=== PATIENT | female | born 1975 | race American Indian/Alaskan Native ===

== ENCOUNTER 2021-09-13 06:11 | Observation (INO) | payer BC ==
[2021-09-09 10:56] LABS: Hematocrit 35.6 % (30.3-42.9); Hemoglobin 11.4 gm/dl (10.1-14.3); Mean Corpuscular HGB Conc 32 % (30-34); Mean Corpuscular Volume 82 fl (79-97); Platelet Count 396 K/mm3 (140-440); Red Blood Count 4.33 M/mm3 (3.65-5.03)
--- NOTE | 2021-09-09 11:06 | Anesthesia Consultation ---
Anesthesia Consult and Med Hx Date of service: 09/13/21 - Airway Anesthetic Teeth Evaluation: Good, Caps ROM Head & Neck: Adequate Mental/Hyoid Distance: Adequate Mallampati Class: Class II Intubation Access Assessment: Probably Good - Pulmonary Exam CTA: Yes - Cardiac Exam Cardiac Exam: RRR - Pre-Operative Health Status ASA Pre-Surgery Classification: ASA2 Proposed Anesthetic Plan: General Nerve Block: prn post-op TAP - Pulmonary Hx Smoking: No Hx Respiratory Symptoms: Yes (occasional cough + congestion; COVID neg 09/06/21) SOB: No - Cardiovascular System Hx Hypertension: No Hx Heart Attack/AMI: No - Central Nervous System CVA: No - Endocrine Hx Renal Disease: No Hx Liver Disease: No Hx Insulin Dependent Diabetes: No Hx Non-Insulin Dependent Diabetes: No Hx Thyroid Disease: Yes (?nodules; thyroid hormone levels OK per patient) - Additional Comments Anesthesia Medical History Comments: No hx anesthetic complications.
[2021-09-09 11:20] LABS: BUN/Creatinine Ratio 11; Blood Urea Nitrogen 9 mg/dL (7-17); Calcium 9.2 mg/dL (8.4-10.2); Hemolysis Index 5
[2021-09-09 12:46] LABS: Platelet Estimate Consistent w Auto; Total Cells Counted 100
--- NOTE | 2021-09-12 09:34 | History and Physical Report ---
History of Present Illness Date of examination: 09/13/21 Date of admission: 09/12/21 Chief complaint: heavy painful bleeding with periods History of present illness: Pt does c/o having increase in menstrual flow as well as increased pain despite having the mirena. Device has been present for the last 4 years. Reports having heavy bleeding prior to placement but states the device has made the bleeding worse because she will have two months of no bleeding followed by heavy bleeding. Sonogram revealed device to be in place and multiple fibroids the largest being 9cm. I d/w LAVH vs ELMER. Pt understands that the size of the fibroids and her previous c/s x2 may prevent the procedure from being done vaginally and she will need the open procedure. All risk, benefits and alternatives were d/w pt and questions were addressed and answered. Consents signed and placed on the chart. Past History : 5 Term Births: 4 Living Children: 3 Para: 3 Prev : 2 Elect. Ab: 1 MANAGER LANGUAGE History Uterine Surgery (not C/S): negative Operations: positive Hospitalizations: negative Anesthesia Complications: negative Abnormal PAP: positive; s/p LEEEP at 20 yo Uterine Anomaly: negative JW Exposure: negative Infertility: negative Relevant Family Hx: HTN Medical Hx Comments: FIBROIDS Infection History HIV Risk Eval: no Personal hx. of genital herpes: no Hx of STD: None Current Allergies (reviewed today): No known allergies Past Medical History: Reviewed and updated today: Fibroids Past Surgical History: Reviewed and updated today: positive General Comments - FH: HTN Risk Factors: Smoked Tobacco Use: Former smoker Cigarettes: Yes Year Quit: 2018 Years Since Last Quit: 3 Smokeless Tobacco Use: Never Passive Smoke Exposure: no HIV High Risk Behavior: no Exercise: yes Times/wk: 0 Seatbelt Use: 100 % Alcohol Use: yes Type: occ Drug Use: no Review of Systems See HPI Past History Past Medical History: other (see hpi) Past Surgical History: other (see hpi) MANAGER LANGUAGE History: other (see hpi) Family/Genetic History: other (see hpi) Social history: other (see hpi) Medications and Allergies Allergies Allergy/AdvReac Type Severity Reaction Status Date / Time No Known Allergies Allergy Verified 09/09/21 11:12 Home Medications Medication Instructions Recorded Confirmed Last Taken Type No Known Home Medications [No 09/09/21 09/09/21 Unknown History Reported Home Medications] Active Meds: Active Medications Acetaminophen (Acetaminophen 500 Mg Tab) 1,000 mg PO PREOP PATRICIA Albuterol (Albuterol 2.5 Mg/3 Ml Nebu) 2.5 mg IH PREOP PATRICIA Celecoxib (Celecoxib 200 Mg Cap) 200 mg PO PREOP NR Stop: 09/13/21 23:00 Gabapentin (Gabapentin 300 Mg Cap) 300 mg PO PREOP NR Stop: 09/13/21 23:00 Lactated Ringer's (Lactated Ringers) 1,000 mls @ 100 mls/hr IV DIRECT PATRICIA Stop: 09/13/21 23:59 Methocarbamol 1,000 mg/ Sodium (Chloride) 260 mls @ 250 mls/hr IV PREOP PATRICIA Midazolam HCl (Midazolam 2 Mg/2 Ml Inj) 2 mg IV PREOP NR Stop: 09/13/21 23:00 Scopolamine (Scopolamine Transdermal Patch 72 Hr) 1 each TD PREOP NR Stop: 09/13/21 23:00 - Vital Signs Vital signs: Vital Signs Temp Pulse Resp BP Pulse Ox 98.2 F 72 20 125/72 97 09/09/21 10:20 09/09/21 10:20 09/09/21 10:20 09/09/21 10:20 09/09/21 10:20 Temp Pulse Resp BP Pulse Ox 98.2 F 72 20 125/72 97 09/09/21 10:20 09/09/21 10:20 09/09/21 10:20 09/09/21 10:20 09/09/21 10:20 - Physical Exam Cardiovascular: Normal S1, Normal S2 Lungs: Positive: Clear to auscultation, Normal air movement Abdomen: Positive: normal appearance, soft. Negative: distention, tenderness Genitourinary (Female): Positive: other (deferred until EUA) Results Result Diagrams: 09/09/21 10:30 09/09/21 10:30 All other labs normal. Assessment and Plan - Patient Problems (1) Menorrhagia with irregular cycle Current Visit: No Status: Acute Plan to address problem: to OR for above stated procedure. consents signed and placed on the chart (2) Dysmenorrhea Current Visit: No Status: Acute Plan to address problem: to OR for above stated procedure. consents signed and placed on the chart (3) Fibroid Current Visit: No Status: Acute Plan to address problem: to OR for above stated procedure. consents signed and placed on the chart
[~2021-09-13 06:11] MED LIST: ACETAMINOPHEN 500 MG TAB PO SCH; ALBUTEROL 2.5 MG/3 ML NEBU IH SCH; CELECOXIB 200 MG CAP PO NR; GABAPENTIN 300 MG CAP PO NR; MIDAZOLAM 2 MG/2 ML INJ IV NR; SCOPOLAMINE TRANSDERMAL PATCH 72 HR TD NR; methOCARBAMOL 1,000 MG in SODIUM CHLORIDE 0.9% 250ML 250 ML IV SCH
[2021-09-13] MEDS: LACTATED RINGERS 1,000 ML IV SCH ×2 (07:00→15:59)
[2021-09-13] MEDS ORDERED: fentaNYL 100 MCG/2 ML INJ ONE (07:17)
[2021-09-13] MEDS ORDERED: propofoL 200 MG/20 ML VIAL IV ONE (07:18)
[2021-09-13] MEDS ORDERED: ONDANSETRON 4 MG/2 ML INJ ONE (07:32)
[2021-09-13] MEDS ORDERED: LIDOCAINE PF 100 MG/5 ML (CARDIAC SYRINGE) IV ONE (07:32)
[2021-09-13] MEDS ORDERED: dexAMETHasone 20 MG/5 ML VIAL ONE (07:37)
--- NOTE | 2021-09-13 07:45 | Anesthesia Day of Surgery ---
Anesthesia Day of Surgery - Day of Surgery Patient Examined: Yes Patient H&P Reviewed: Yes Patient is NPO: Yes
[2021-09-13] MEDS ORDERED: BUPIVACAINE/PF (0.5%) 5 MG/1 ML 30 ML VIAL INFILTRATI ONE ×2 (07:53→10:13)
[2021-09-13] MEDS ORDERED: METHYLENE BLUE 50 MG/10 ML AMP ONE (07:54)
[2021-09-13] MEDS ORDERED: VASOPRESSIN 20 UNIT/1 ML INJ ONE (07:54)
[2021-09-13] MEDS ORDERED: ceFAZolin/STERILE WATER 2 GM/20 ML SYRINGE IV NR (08:00)
[2021-09-13] MEDS ORDERED: SODIUM CHLORIDE 0.9% 250ML 250 ML ONE (08:06)
[2021-09-13] MEDS ORDERED: CITRIC ACID-SOD CITRATE 500 ML IV ONE (08:06)
[2021-09-13] MEDS ORDERED: ONDANSETRON 4 MG/2 ML INJ IV PRN ×2 (08:30→15:00)
[2021-09-13] MEDS ORDERED: HYDROmorphone 1 MG/1 ML INJ IV PRN (09:00)
[2021-09-13] MEDS ORDERED: SODIUM CHLORIDE 0.9% IRRIG SOLN 2000 ML IR ONE (10:13)
[2021-09-13] MEDS ORDERED: SODIUM CHLORIDE 0.9% IRR 1,500 ML BOTTLE IR ONE (10:13)
[2021-09-13] MEDS ORDERED: VASOPRESSIN 20 UNIT/1 ML INJ IV ONE (10:14)
[2021-09-13] MEDS ORDERED: SODIUM CHLORIDE 0.9% 100 ML IVPB IV ONE (10:19)
[2021-09-13] MEDS ORDERED: dexAMETHasone 4 MG/ML VIAL ONE (11:10)
[2021-09-13] MEDS ORDERED: BUPIVACAINE/PF (0.25%) 2.5 MG/ML 30 ML VIAL INFILTRATI ONE (11:10)
--- NOTE | 2021-09-13 11:29 | Operative Report ---
Operative Report Operative Report: Date of procedure: 09/13/2021 Pre-operative diagnosis: Menorrhagia Dysmenorrhea Uterine fibroids Post-operative diagnosis: Same plus evidence of adenomyosis Procedure name(s): Laparoscopic assisted vaginal hysterectomy Bilateral salpingectomy Removal of intrauterine device Surgeon: Valeria Iglesias MD Back Hoe Machine Operator: Dr. Apoorva Marcelino Anesthesia: General endotracheal anesthesia EBL: 100 mL Urine output: 700 mL Fluids: 1100 mL Findings: Enlarged globular uterus with approximately 10 cm fibroid noted Grossly normal fallopian tubes and ovaries bilaterally Evidence of adenomyosis Indications: Patient with uterine fibroids treated with Mirena IUD. Patient noted to have no relief of symptoms with placement of device. Patient noted to have large fibroids and desired to have definitive therapy. Decision was made to proceed with above-stated procedure. All risk benefits and alternatives were discussed with the patient. Procedure: Patient was taken to the operating room where she was placed under general endotracheal anesthesia. She was then prepped and draped in sterile fashion. It was at this point that the medium V care uterine manipulator was placed inside of the uterus after the uterus was sounded to approximately 12 cm. Sullivan catheter was also placed at this time. Attention was then turned to the umbilicus in which a supraumbilical incision was made. Under direct visualization the 5 mm trocar was placed inside the peritoneum the peritoneum was then insufflated. As at this point that the laparoscopic portion of the procedure was performed. 2 lateral 5 mm ports were also placed under direct visualization. Using the tripolar instrument the upper pedicles were cauterized and transected to the including round ligament with excellent hemostasis noted bilaterally. Attention was turned to the fallopian tubes bilaterally which were cauterized and transected and removed. They were handed off to the field for pathology. Attention was then turned vaginally. A weighted speculum was placed into the vagina and the cervix was grasped with a single-tooth tenaculum 2. The cervix was then injected circumferentially with Pitressin. The cervix was then circumferentially incised with the scalpel and the bladder dissected off of the pubovesical cervical fascia anteriorly with a sponge stick and Metzenbaum scissors. The same procedure was performed posteriorly and the posterior cul-de-sac was entered into sharply without difficulty. At this point a Kwesi Clamp was placed over the uterosacral ligaments on either side. These were then transected and suture ligated with 0 Vicryl. Hemostasis was assured. The cardinal ligaments were then clamped on both sides transected and suture ligated in similar fashion. The uterine arteries were then serially clamped with Kwesi clamps transected and suture ligated on both sides. Excellent hemostasis was visualized. After it was clear that the uterus had been completely from all pedicles the uterus was removed vaginally intact with cervix intact. The vaginal cuff angles were closed with figure of 8 stitches of 0 Vicryl on both sides. The peritoneum was incorporated in the stitching of the vaginal cuff. A series of interrupted figure of 8 sutures using 0 Vicryl were used to close the entire vaginal cuff. Excellent hemostasis was noted. The vagina was then irrigated copiously. Attention was then turned laparoscopically at which time. Again all pedicles were noted to be hemostatic. All instruments were then removed from the abdomen and the vagina. All gas was released from the abdomen. The abdominal incisions were closed using 4-0 Monocryl. Patient tolerated the procedure well sponge lap and needle counts were all correct 3 the patient was taken to the recovery room awake and in stable condition.
[2021-09-13] MEDS: HYDROmorphone 1 MG/1 ML INJ IV PRN ×2 (11:55→12:05)
[2021-09-13] MEDS ORDERED: IBUPROFEN 800 MG TAB PO PRN (12:00)
[2021-09-13] MEDS ORDERED: KETOROLAC 30 MG/1 ML INJ IV PRN (12:00)
[2021-09-13] MEDS ORDERED: ACETAMINOPHEN 325 MG TAB PO PRN (12:00)
--- NOTE | 2021-09-13 14:52 | Post Anesthesia Evaluation ---
- Post Anesthesia Evaluation Patient Participated: Yes Airway Patent: Yes Stable Respiratory Function: Yes Nausea/Vomiting: No Temp > 96.8F: Yes Pain Manageable: Yes Adequeate Hydration: Yes Anesthesia Complications: No Block Receding Appropriately: Yes Patient on Ventilator: No
[2021-09-13] MEDS: MORPHINE 4 MG/1 ML INJ IV PRN ×2 (15:59→20:00)
[2021-09-13] MEDS: ceFAZolin/NS 1 GM/50 ML 1 GM/50 ML BAG IV SCH ×2 (16:00→23:47)
[2021-09-14] MEDS: HYDROcodone/ACETAMINOPHEN 5-325 MG TAB PO PRN ×3 (04:00→11:11)
[2021-09-14] MEDS ORDERED: PHENOL 1.4% 177 ML BOTTLE MM PRN (05:37)
[2021-09-14 06:29] LABS: Hematocrit 34.7 % (30.3-42.9); Hemoglobin 10.5 gm/dl (10.1-14.3)
--- NOTE | 2021-09-14 10:30 | Progress Note ---
Assessment and Plan - Patient Problems (1) Menorrhagia with irregular cycle Current Visit: No Status: Acute (2) Dysmenorrhea Current Visit: No Status: Acute (3) Fibroid Current Visit: No Status: Acute (4) S/P laparoscopic assisted vaginal hysterectomy (LAVH) Current Visit: Yes Status: Acute Plan to address problem: routine post op care d/c home this pm if AFVSS Subjective - Subjective Date of service: 09/14/21 Principal diagnosis: POD #! s/p LAVH with BS Interval history: Pt c/o having diaphragm pain that radiates to her right shoulder. I d/w pt that due to the LAVH and the air that is placed in abdomen, this is common and will get better. No fevers, chills, nausea of vomiting. Pt tolerated her regular diet breakfast this am. Post op goals were d/w pt and questions were addressed and answered. Patient reports: appetite normal, voiding normally, pain well controlled, flatus Objective - Vital Signs Latest vital signs: Vital Signs Temp Pulse Resp Resp BP BP Pulse Ox 09/14/21 07:22 98.3 F 52 L 18 118/64 99 09/14/21 05:28 98.2 F 56 L 20 133/71 99 09/14/21 05:00 18 09/14/21 04:00 18 09/14/21 01:00 18 09/14/21 00:26 98.3 F 58 L 20 132/70 99 09/14/21 00:00 18 09/13/21 20:30 18 09/13/21 20:00 18 18 98 09/13/21 19:35 98.2 F 77 20 143/69 100 09/13/21 16:05 98.4 F 78 20 133/85 100 09/13/21 12:15 98.1 F 62 16 124/66 100 09/13/21 12:06 97.8 F 65 18 147/75 97 09/13/21 12:05 16 09/13/21 12:00 65 16 141/75 100 09/13/21 11:55 74 16 137/75 100 09/13/21 11:50 71 16 135/75 100 09/13/21 11:45 97.2 F L 70 13 129/71 100 Intake and Output 09/13/21 09/14/21 09/14/21 22:59 06:59 14:59 Intake Total 1788.333 480 120 Output Total 2600 2800 Balance -811.667 -2320 120 Intake: IV 948.333 ANCEF/NS 1 GM/50 ML 1 gm 50 In 50 ml @ 100 mls/hr IV Q8H PATRICIA Rx#:[id number] Lactated Ringers 1,000 ml 898.333 @ 100 mls/hr IV DIRECT PATRICIA Rx#:[id number] Oral 480 480 120 Intake, Free Water 360 Output: Urine 2600 2800 Indwelling Catheter 2600 2800 Other: Total, Intake Amount 480 240 120 Total, Output Amount 1300 1300 Voiding Method Indwelling Catheter - Exam Cardiovascular: Present: Regular rate, Normal S1, Normal S2 Lungs: Present: Clear to auscultation, Normal air movement Abdomen: Present: normal appearance, soft, normal bowel sounds. Absent: distention, tenderness, guarding Incision: Present: normal, dry, intact
--- NOTE | 2021-09-14 10:32 | Discharge Summary ---
Providers - Providers Date of Admission: 09/13/21 11:30 Date of discharge: 09/14/21 Attending physician: LISA IGLESIAS Primary care physician: RN BSN Hospitalization Reason for admission: other (fibroid uterus, menorrhagia, dysmenorrhea) Procedure: other (LAVH WITH BS) Procedure details: SEE OP NOTE Incision: normal, dry, intact Hospital course: Pt admitted and had above stated procedure that was not complicated. She had routine post op care and was d/c home on POD #1. Pt to f/u in office in one week. Condition at discharge: Good Disposition: HOME / SELF CARE / HOMELESS - Discharge Diagnoses (1) Menorrhagia with irregular cycle Status: Acute (2) Dysmenorrhea Status: Acute (3) Fibroid Status: Acute (4) S/P laparoscopic assisted vaginal hysterectomy (LAVH) Status: Acute Plan - Discharge Medications Prescriptions: Docusate Sodium [Colace] 100 mg PO BID PRN #60 capsule PRN Reason: Constipation Ferrous Sulfate [Feosol 325 MG tab] 325 mg PO QDAY #60 tablet Ibuprofen [Motrin 800 MG tab] 800 mg PO Q8HR PRN #30 tablet PRN Reason: Pain, Moderate (4-6) oxyCODONE /ACETAMINOPHEN [Percocet 5/325] 1 tab PO Q4HR #30 tab - Provider Discharge Summary Activity: routine, no sex for 6 weeks, no heavy lifting 4 weeks Diet: routine Instructions: routine Additional instructions: [] Smoking cessation referral if applicable(refer to patient education folder for contact #) [] Refer to [facility] Booklet Call your doctor immediately for: * Fever > 100.5 * Heavy vaginal bleeding ( >1 pad per hour) * Severe persistent headache * Shortness of breath * Reddened, hot, painful area to leg or breast * Drainage or odor from incision. * Keep incision clean and dry at all times and follow doctor's instructions regarding bathing/showering keep scheduled apt with Dr. Iglesias in one week - Follow up plan Follow up: PRIMARY CARE, [Primary Care Provider] - 7 Days Forms: [facility] Discharge Summary
[2021-09-14 12:07] VITALS: BP 133/71
== END 2021-09-14 12:20 | disposition home or self-care (01) ==
LOC: OR 06:11 → OB 11:30
PROVIDERS: ADMIT Obstetrics & Gynecology; ATTEND Obstetrics & Gynecology
DX: N92.1 Excessive and frequent menstruation with irregular cycle (principal); D21.9 Benign neoplasm of connective and other soft tissue, unspecified; N94.6 Dysmenorrhea, unspecified; Z98.891 History of uterine scar from previous surgery; Z87.891 Personal history of nicotine dependence; Z79.899 Other long term (current) drug therapy; Z98.890 Other specified postprocedural states
CPT/HCPCS: 36415; 58554; 80048; 84703; 85014; 85018; 85025; 86850; 86900; 86901; 88300; 88302; 88307; 96365; 96366; 96375; 96376; G0378; J0690; J1100; J1170; J2001; J2250; J2270; J2405; J2704; J2800; J3010; J3490; J7050; J7120; 85007; Q9968

== ENCOUNTER 2021-09-20 16:15 | Emergency (ER) | payer BC ==
[2021-09-20] MEDS ORDERED: methylPREDNISolone Sod Succinate 125 MG/2 ML INJ IM ONE (21:24)
[2021-09-20] MEDS ORDERED: diphenhydrAMINE 25 MG CAP PO ONE (21:24)
[2021-09-20] MEDS ORDERED: FAMOTIDINE 20 MG TAB PO ONE (21:24)
--- NOTE | 2021-09-20 21:53 | Emergency Department Report ---
ED Allergic Reaction HPI - General Chief complaint: Skin Rash Stated complaint: RASH/ITCHING Source: patient Mode of arrival: Ambulatory Limitations: No Limitations - History of Present Illness Initial Comments: Patient is a 45-year-old -French female with a history of GERD and migraine headaches who presents to the ED with complaint of acute onset persistent diffuse itchy erythematous maculopapular urticarial rashes for over 20 hours. Patient states that she is unsure as to the etiology of the rash is but adds that the only thing new in the last few days was a new juice that she tried on about 24 hours ago. Patient however stated that she is also s/p laparoscopic hysterectomy about a week ago and felt that this may have had something to do with the acute onset itchy rashes. Patient stated that she did not take any medications prior to arrival in the ED except ibuprofen for pain and stool softener. Patient denies dizziness, syncope, chest pain or shortness of breath, wheezing, cough, nausea and vomiting, chest tightness, palpitations, diarrhea, abdominal pain, swollen lips or swollen tongue, dysphagia or dysphonia and hoarseness. MD Complaint: allergic reaction, hives, other (diffuse itchy erythematous macular rashes) -: Sudden, hour(s) (20) Exposure: unknown Symptoms: rash, itching. denies: facial swelling, lip swelling, difficulty swallowing, difficulty breathing, orolingual swelling, hoarseness, syncopy, dizziness, nausea, other, abdominal pain Severity: severe Treatment Prior to Arrival: none Previous Allergy History: none - Related Data Previous Rx's Medication Instructions Recorded Last Taken Type Docusate Sodium [Colace] 100 mg PO BID PRN #60 capsule 09/13/21 Unknown Rx Ferrous Sulfate [Feosol 325 MG tab] 325 mg PO QDAY #60 tablet 09/13/21 Unknown Rx Ibuprofen [Motrin 800 MG tab] 800 mg PO Q8HR PRN #30 tablet 09/13/21 Unknown Rx oxyCODONE /ACETAMINOPHEN [Percocet 1 tab PO Q4HR #30 tab 09/13/21 Unknown Rx 5/325] Famotidine [Pepcid] 20 mg PO Q12H #60 tablet 09/20/21 Unknown Rx Prednisone [predniSONE 10 mg 10 mg PO .TAPER #1 09/20/21 Unknown Rx (6-Day Pack, 21 Tabs)] diphenhydrAMINE [Benadryl CAP] 50 mg PO Q8HR PRN #30 capsule 09/20/21 Unknown Rx Allergies Allergy/AdvReac Type Severity Reaction Status Date / Time No Known Allergies Allergy Verified 09/20/21 19:37 ED Review of Systems ROS: Stated complaint: RASH/ITCHING Other details as noted in HPI Constitutional: denies: chills, fever Eyes: denies: eye pain, eye discharge, vision change ENT: denies: ear pain, throat pain Respiratory: denies: cough, shortness of breath, wheezing Cardiovascular: denies: chest pain, palpitations Endocrine: no symptoms reported Gastrointestinal: denies: abdominal pain, nausea, diarrhea Genitourinary: denies: urgency, dysuria, discharge Musculoskeletal: denies: back pain, joint swelling, arthralgia Skin: rash (Diffuse itchy erythematous macular rash chest), change in color, pruritus. denies: lesions Neurological: denies: headache, weakness, paresthesias Psychiatric: denies: anxiety, depression Hematological/Lymphatic: denies: easy bleeding, easy bruising ED Past Medical Hx - Past Medical History Hx Hypertension: No Hx Heart Attack/AMI: No Hx GERD: Yes (Past hx) Hx Liver Disease: No Hx Renal Disease: No Hx Headaches / Migraines: Yes (Migraines) - Surgical History Past Surgical History?: Yes Additional Surgical History: HYSTERECTOMY - Social History Smoking Status: Former Smoker - Medications Home Medications: Home Medications Medication Instructions Recorded Confirmed Last Taken Type Docusate Sodium [Colace] 100 mg PO BID PRN #60 capsule 09/13/21 Unknown Rx Ferrous Sulfate [Feosol 325 MG tab] 325 mg PO QDAY #60 tablet 09/13/21 Unknown Rx Ibuprofen [Motrin 800 MG tab] 800 mg PO Q8HR PRN #30 tablet 09/13/21 Unknown Rx oxyCODONE /ACETAMINOPHEN [Percocet 1 tab PO Q4HR #30 tab 09/13/21 Unknown Rx 5/325] Famotidine [Pepcid] 20 mg PO Q12H #60 tablet 09/20/21 Unknown Rx Prednisone [predniSONE 10 mg 10 mg PO .TAPER #1 09/20/21 Unknown Rx (6-Day Pack, 21 Tabs)] diphenhydrAMINE [Benadryl CAP] 50 mg PO Q8HR PRN #30 capsule 09/20/21 Unknown Rx ED Physical Exam - General Limitations: No Limitations General appearance: alert, in no apparent distress - Head Head exam: Present: atraumatic, normocephalic, normal inspection - Eye Eye exam: Present: normal appearance, PERRL, EOMI Pupils: Present: normal accommodation - ENT ENT exam: Present: normal exam, normal orophraynx, mucous membranes moist, TM's normal bilaterally, normal external ear exam - Neck Neck exam: Present: normal inspection, full ROM. Absent: tenderness, meningismus, lymphadenopathy, thyromegaly - Respiratory Respiratory exam: Present: normal lung sounds bilaterally. Absent: respiratory distress, wheezes, rales, rhonchi, chest wall tenderness, accessory muscle use, decreased breath sounds, prolonged expiratory - Cardiovascular Cardiovascular Exam: Present: regular rate, normal rhythm, normal heart sounds. Absent: systolic murmur, diastolic murmur, rubs, gallop - GI/Abdominal GI/Abdominal exam: Present: soft, normal bowel sounds. Absent: tenderness, guarding, rebound, rigid, hypoactive bowel sounds, organomegaly - Extremities Exam Extremities exam: Present: normal inspection, full ROM, normal capillary refill. Absent: tenderness, pedal edema, joint swelling, calf tenderness - Back Exam Back exam: Present: normal inspection, full ROM. Absent: tenderness, CVA tenderness (R), CVA tenderness (L), paraspinal tenderness - Neurological Exam Neurological exam: Present: alert, oriented X3, CN II-XII intact, normal gait, reflexes normal - Psychiatric Psychiatric exam: Present: normal affect, normal mood, anxious - Skin Skin exam: Present: warm, dry, intact, rash (Diffuse erythematous maculopapular urticarial rashes), erythema, urticaria. Absent: normal color ED Course Vital Signs 09/20/21 19:33 Temperature 100 F H Pulse Rate 91 H Respiratory 17 Rate Blood Pressure 131/85 [Right] O2 Sat by Pulse 100 Oximetry ED Medical Decision Making - Medical Decision Making This is a 45-year-old -French female with a history of GERD and migraine headaches who presents to the ED with complaint of acute onset persistent diffuse itchy erythematous maculopapular urticarial rashes for over 20 hours. Patient states that she is unsure as to the etiology of the rash is but adds that the only thing new in the last few days was a new juice that she tried on about 24 hours ago. Patient however stated that she is also s/p laparoscopic hysterectomy about a week ago and felt that this may have had something to do with the acute onset itchy rashes. Patient stated that she did not take any medications prior to arrival in the ED except ibuprofen for pain and stool softener. In the ED, patient is alert and oriented x3 and is not in distress. Patient was treated with Solu-Medrol 125 mg intramuscular injection, Pepcid 40 mg p.o. and Benadryl 50 mg p.o. On reevaluation, patient's itching resolved and the rash has also improved significantly prior to the patient being discharged out of the hospital. Patient was discharged with prescription of oral steroids, Benadryl and Pepcid. Prescription patient was advised to follow- up with her primary care physician in 3 to 5 days for reevaluation or return to the ED immediately if symptoms get worse. - Differential Diagnosis Acute urticaria; Irritant dermatitis; allergic reaction; anaphylaxis Critical care attestation.: If time is entered above; I have spent that time in minutes in the direct care of this critically ill patient, excluding procedure time. ED Disposition Clinical Impression: Acute allergic reaction, Acute urticaria, Itching with irritation Disposition: 01 HOME / SELF CARE / HOMELESS Is pt being admited?: No Does the pt Need Aspirin: No Condition: Stable Instructions: Allergies, Adult, [id number], Hives, [id number], Rash, Adult, [id number] Additional Instructions: Take medication with food, drink plenty fluids and follow-up with your primary care physician in 3 to 5 days for reevaluation. Return to the ED immediately if symptoms get worse. Prescriptions: diphenhydrAMINE [Benadryl CAP] 50 mg PO Q8HR PRN #30 capsule PRN Reason: Itching Famotidine [Pepcid] 20 mg PO Q12H #60 tablet Prednisone [predniSONE 10 mg (6-Day Pack, 21 Tabs)] 10 mg PO .TAPER #1 Referrals: [facility] [Provider Group] - 3-5 Days Time of Disposition: 21:55 Print Language: CROATIAN
[2021-09-20 22:22] VITALS: BP 126/81
== END 2021-09-20 22:21 | disposition home or self-care (01) ==
LOC: ED 16:15
DX: T78.40XA Allergy, unspecified, initial encounter (principal); X58.XXXA Exposure to other specified factors, initial encounter; L50.9 Urticaria, unspecified; R21 Rash and other nonspecific skin eruption
CPT/HCPCS: 96372; 99282; J2930

== ENCOUNTER 2021-12-29 08:56 | Outpatient (CLI) | payer BC ==
--- NOTE | 2021-12-29 10:24 | Cat Scan Report ---
CTA CHEST WITH CONTRAST INDICATION / CLINICAL INFORMATION: I26.99 PULMONARY EMBOLISM 100 ml omni 300. TECHNIQUE: Axial CT images were obtained through the chest after injection of IV contrast. 3 plane LA P and/or 3D reconstructions were produced. All CT scans at this location are performed using CT dose reduction for ALARA by means of automated exposure control. COMPARISON: CTA chest dated 09/22/2021 FINDINGS: PULMONARY ARTERIES: No pulmonary emboli. Previously seen lower lobe segmental PEs have resolved. THORACIC AORTA: No significant abnormality. HEART: No significant abnormality. CORONARY ARTERY CALCIFICATION: None. MEDIASTINUM / PARTHA: No significant abnormality. PLEURA: No pleural effusion. No pneumothorax. LUNGS: No acute air space or interstitial disease. Small calcified granuloma in the lingula. ADDITIONAL FINDINGS: None. UPPER ABDOMEN: No acute findings. SKELETAL STRUCTURES: No significant osseous abnormality. IMPRESSION: 1. No CT evidence for pulmonary embolism. Previously seen lower lobe segmental pulmonary emboli have resolved. 2. No acute findings. Signer Name: Onel Irizarry MD Signed: 12/29/2021 10:20 AM Workstation Name: [id number]
== END 2021-12-29 08:57 | disposition home or self-care (01) ==
LOC: CT 08:56
PROVIDERS: ATTEND Specialist
DX: I26.99 Other pulmonary embolism without acute cor pulmonale (principal)
CPT/HCPCS: 71275; Q9967